=== PATIENT | female | born 1970 | race Asian ===

== ENCOUNTER 2017-10-06 00:46 | Inpatient (IN) | payer OTHER ==
[~2017-10-06] VITALS: Ht 160 cm; Wt 72.0 kg
[~2017-10-06 00:46] MED LIST: CEPH-582 PO
[2017-10-06] MEDS ORDERED: ALBUTEROL SULFATE 2.5 MG/0.5 ML NEB SOLUTION NEB ONE (01:15)
[2017-10-06] MEDS ORDERED: 0.9% SODIUM CHLORIDE 5 ML NEB SOLUTION NEB ONE (01:23)
[2017-10-06 01:57] LABS: BASOPHILS % (AUTO) 0.3 % (0.0-2.0); EOSINOPHILS % (AUTO) 5.2 % (1.0-6.0); HEMATOCRIT 35.6 % (36-46); HEMOGLOBIN 11.9 g/dL (12.0-16.0); LYMPHOCYTES # (AUTO) 0.4 K/uL (1.0-4.8); LYMPHOCYTES % (AUTO) 4.1 % (22.0-44.0); MEAN CORPUSCULAR HEMOGLOBIN 27.6 pg (26.0-34.0); MEAN CORPUSCULAR HGB CONC 33.4 G/dL (31.0-37.0); MEAN CORPUSCULAR VOLUME 83 fL (80-100); MONOCYTES # (AUTO) 1.2 K/uL (0.1-1.0); MONOCYTES % (AUTO) 10.7 % (2.0-9.0); NEUTROPHILS # (AUTO) 8.7 K/uL (1.8-7.7); NEUTROPHILS % (AUTO) 79.7 % (40.0-70.0); PLATELET COUNT (AUTO) 483 K/uL (150-450); RED CELL DISTRIBUTION WIDTH 15.8 % (11.5-14.5)
[2017-10-06 02:06] LABS: ANION GAP 10 mmol/L (8-16); CALCIUM, TOTAL 9.3 mg/dL (8.8-10.5); CARBON DIOXIDE 28 mmol/L (22-29); CHLORIDE 97 mmol/L (98-107); CREATININE 0.79 mg/dL (0.60-1.30); GLOMERULAR FILTR. RATE CALC > 60 mL/min (>60); GLUCOSE,RANDOM 96 mg/dL (70-110); POTASSIUM 3.5 mmol/L (3.5-5.1); SODIUM SERUM 135 mmol/L (136-145); UREA NITROGEN, BLOOD 7 mg/dL (7-18)
[2017-10-06 02:11] LABS: ALANINE AMINOTRANSFERASE 22 U/L (12-78); ALBUMIN 2.9 g/dL (3.4-5.0); ALKALINE PHOSPHATASE 157 U/L (46-116); ASPARTATE AMINOTRANSFERASE 18 U/L (15-37); BILIRUBIN,TOTAL 0.3 mg/dL (0.1-1.0); TOTAL PROTEIN, SERUM 8.9 g/dL (6.4-8.2)
[2017-10-06] MEDS ORDERED: IOVERSOL 350 MG/ML 100 ML VIAL ONE (02:47)
[2017-10-06] MEDS ORDERED: SODIUM CHLORIDE 0.9% 100 ML ONE (02:48)
[2017-10-06] MEDS ORDERED: 0.9% SODIUM CHLORIDE 10 ML SYRINGE IVP PRN (04:45)
[2017-10-06] MEDS ORDERED: ACETAMINOPHEN 325 MG TABLET PO PRN ×2 (04:45→10:00)
[2017-10-06] MEDS ORDERED: ONDANSETRON HCL 4 MG/2 ML VIAL IVP PRN ×2 (04:45→10:00)
[2017-10-06 05:35] VITALS: BP 141/93
[2017-10-06 08:11] VITALS: BP 143/85
[2017-10-06] MEDS: IPRATROPIUM BROMIDE 0.5 MG/2.5 ML NEB SOLUTION NEB PRN (09:54)
[2017-10-06] MEDS: ALBUTEROL SULFATE 2.5 MG/0.5 ML NEB SOLUTION NEB PRN (09:55)
[2017-10-06] MEDS: HEPARIN SODIUM,PORCINE 5,000 UNITS/ML VIAL SQ SCH ×2 (11:13→16:35)
[2017-10-06] MEDS: SODIUM CHLORIDE 0.9% 1,000 ML IV SCH (11:14)
[2017-10-06] MEDS: DOCUSATE SODIUM 100 MG CAPSULE PO SCH ×2 (11:15→21:00)
[2017-10-06] MEDS: OXYGEN THERAPY IH SCH ×2 (11:15→20:00)
[2017-10-06] MEDS: DiphenhydrAMINE HCL 25 MG/10 ML ELIXIR UDCUP PO SCH ×2 (11:15→20:55)
[2017-10-06] MEDS: PROMETHAZINE HCL/CODEINE 6.25-10MG/5ML SYRUP UDCUP PO PRN (12:15)
[2017-10-06] MEDS ORDERED: ZOLPIDEM TARTRATE 5 MG TABLET PO PRN (15:15)
[2017-10-06 15:35] VITALS: BP 113/71
[2017-10-06 20:16] VITALS: BP 117/68
[2017-10-06] MEDS: ZOLPIDEM TARTRATE 5 MG TABLET PO PRN (20:58)
[2017-10-07] VITALS (8 sets, daily range): BP systolic 109–145; BP diastolic 53–90
[2017-10-07] MEDS: SODIUM CHLORIDE 0.9% 1,000 ML IV SCH (02:00)
[2017-10-07] MEDS: DiphenhydrAMINE HCL 25 MG/10 ML ELIXIR UDCUP PO SCH ×3 (02:30→16:53)
[2017-10-07] MEDS: HEPARIN SODIUM,PORCINE 5,000 UNITS/ML VIAL SQ SCH ×3 (07:17→14:44)
[2017-10-07 08:06] LABS: BASOPHILS % (AUTO) 0.1 % (0.0-2.0); EOSINOPHILS % (AUTO) 3.8 % (1.0-6.0); HEMATOCRIT 35.4 % (36-46); HEMOGLOBIN 11.7 g/dL (12.0-16.0); LYMPHOCYTES # (AUTO) 0.3 K/uL (1.0-4.8); LYMPHOCYTES % (AUTO) 3.3 % (22.0-44.0); MEAN CORPUSCULAR HEMOGLOBIN 27.4 pg (26.0-34.0); MEAN CORPUSCULAR VOLUME 83 fL (80-100); MONOCYTES # (AUTO) 0.9 K/uL (0.1-1.0); MONOCYTES % (AUTO) 10.5 % (2.0-9.0); NEUTROPHILS # (AUTO) 7.3 K/uL (1.8-7.7); NEUTROPHILS % (AUTO) 82.3 % (40.0-70.0); PLATELET COUNT (AUTO) 480 K/uL (150-450); RED BLOOD CELL COUNT(AUTO) 4.26 MIL/uL (4.00-5.20); RED CELL DISTRIBUTION WIDTH 15.9 % (11.5-14.5)
[2017-10-07 08:08] LABS: PROTHROMBIN TIME 10.9 SEC (9.4-11.6)
[2017-10-07 08:27] LABS: ALANINE AMINOTRANSFERASE 19 U/L (12-78); ALBUMIN 2.8 g/dL (3.4-5.0); ALKALINE PHOSPHATASE 135 U/L (46-116); ANION GAP 8 mmol/L (8-16); ASPARTATE AMINOTRANSFERASE 17 U/L (15-37); BILIRUBIN,TOTAL 0.5 mg/dL (0.1-1.0); CALCIUM, TOTAL 8.6 mg/dL (8.8-10.5); CARBON DIOXIDE 28 mmol/L (22-29); CHLORIDE 100 mmol/L (98-107); CREATININE 0.71 mg/dL (0.60-1.30); GLOMERULAR FILTR. RATE CALC > 60 mL/min (>60); GLUCOSE,RANDOM 84 mg/dL (70-110); LACTATE DEHYDROGENASE 348 U/L (81-234); POTASSIUM 3.7 mmol/L (3.5-5.1); SODIUM SERUM 136 mmol/L (136-145); THYROID STIMULATING HORMONE 1.36 uIU/mL (0.36-3.74); TOTAL PROTEIN, SERUM 8.6 g/dL (6.4-8.2); UREA NITROGEN, BLOOD 6 mg/dL (7-18); URIC ACID 5.5 mg/dL (2.6-7.2)
[2017-10-07] MEDS: DOCUSATE SODIUM 100 MG CAPSULE PO SCH ×2 (08:51→21:00)
[2017-10-07] MEDS: OXYGEN THERAPY IH SCH ×2 (08:53→20:00)
[2017-10-07] MEDS ORDERED: FLUMAZENIL 0.1 MG/ML 5 ML VIAL IVP ONE (09:19)
[2017-10-07] MEDS ORDERED: FentaNYL CITRATE-PF 100 MCG/2 ML VIAL ONE (09:19)
[2017-10-07] MEDS ORDERED: NALOXONE HCL 0.4 MG/ML VIAL ONE (09:19)
[2017-10-07] MEDS ORDERED: MIDAZOLAM HCL 2 MG/2 ML VIAL ONE (09:19)
[2017-10-07 09:35] LABS: ERYTHROCYTE SEDIMENTATION RATE 95 MM/HR (0-20)
[2017-10-07] MEDS ORDERED: FentaNYL CITRATE-PF 100 MCG/2 ML VIAL IVP ONE (12:17)
[2017-10-07] MEDS ORDERED: MIDAZOLAM HCL 2 MG/2 ML VIAL IVP ONE (12:17)
[2017-10-07] MEDS ORDERED: BARIUM SULFATE 0.1% SUSPENSION 450 ML BOTTLE ONE (12:43)
[2017-10-07] MEDS: ALBUTEROL SULFATE 2.5 MG/0.5 ML NEB SOLUTION NEB PRN (17:01)
[2017-10-07] MEDS: IPRATROPIUM BROMIDE 0.5 MG/2.5 ML NEB SOLUTION NEB PRN (17:01)
[2017-10-07] MEDS ORDERED: IOVERSOL 320 MG/ML 100 ML VIAL ONE (17:14)
[2017-10-07] MEDS: ZOLPIDEM TARTRATE 5 MG TABLET PO PRN (22:50)
[2017-10-08] MEDS: DiphenhydrAMINE HCL 25 MG/10 ML ELIXIR UDCUP PO SCH ×2 (02:30→09:30)
[2017-10-08 06:32] VITALS: BP 130/82
[2017-10-08 08:00] VITALS: BP 145/75
[2017-10-08] MEDS: HEPARIN SODIUM,PORCINE 5,000 UNITS/ML VIAL SQ SCH ×4 (08:00→23:55)
[2017-10-08] MEDS: DOCUSATE SODIUM 100 MG CAPSULE PO SCH ×2 (08:26→21:00)
[2017-10-08] MEDS: OXYGEN THERAPY IH SCH ×2 (08:56→20:00)
[2017-10-08 10:37] LABS: SPECIMENTYPE,BODY FLUID PLEURAL
[2017-10-08 11:05] VITALS: BP 98/62
[2017-10-08 12:25] LABS: APPEARANCE,SPUN,BODY FLUID CLEAR (CLEAR); APPEARANCE,UNSPUN,BODY FLUID HAZY (CLEAR)
[2017-10-08 12:26] LABS: BASOPHILS,BODY FLUID 0 %; COLOR,BODY FLUID YELLOW (LT YELLOW); EOSINOPHILS,BF (ANAL) 3 %; LYMPHOCYTES,BODY FLUID 74 %; MONOCYTES,BODY FLUID 3 %; NEUTROPHILS,BODY FLUID 12 %; TOTAL VOLUME,BODY FLUID 1100 mL; WBC, BODY FLUID 480 /cu. mm.
[2017-10-08 12:27] LABS: OTHER CELLS,BODY FLUID 8; PH, BODY FLUID 7
[2017-10-08 17:24] VITALS: BP 128/83
[2017-10-08 20:56] VITALS: BP 121/62
[2017-10-09 05:17] VITALS: BP 105/64
[2017-10-09] MEDS: DiphenhydrAMINE HCL 25 MG/10 ML ELIXIR UDCUP PO PRN ×2 (06:46→17:18)
[2017-10-09 07:41] VITALS: BP 106/71
[2017-10-09] MEDS: OXYGEN THERAPY IH SCH ×2 (08:00→20:00)
[2017-10-09] MEDS: HEPARIN SODIUM,PORCINE 5,000 UNITS/ML VIAL SQ SCH ×3 (08:00→23:42)
[2017-10-09] MEDS: DOCUSATE SODIUM 100 MG CAPSULE PO SCH ×2 (09:00→21:00)
[2017-10-09 11:33] VITALS: BP 102/53
[2017-10-09 17:17] VITALS: BP 101/64
[2017-10-09 20:37] VITALS: BP 106/61
[2017-10-10] VITALS (13 sets, daily range): BP systolic 98–207; BP diastolic 56–94
[2017-10-10] MEDS: HEPARIN SODIUM,PORCINE 5,000 UNITS/ML VIAL SQ SCH (08:00)
[2017-10-10] MEDS: OXYGEN THERAPY IH SCH (08:00)
[2017-10-10] MEDS: DOCUSATE SODIUM 100 MG CAPSULE PO SCH ×2 (08:18→21:00)
[2017-10-10] MEDS ORDERED: FentaNYL CITRATE-PF 250 MCG/5 ML VIAL IVP ONE (12:00)
[2017-10-10] MEDS ORDERED: ESMOLOL HCL 10 MG/ML 10 ML VIAL IVP ONE (12:00)
[2017-10-10] MEDS ORDERED: KETAMINE HCL 50 MG/ML 10 ML VIAL IVP ONE (12:00)
[2017-10-10] MEDS ORDERED: PROPOFOL 1% 20 ML VIAL IVP ONE (12:00)
[2017-10-10] MEDS ORDERED: LIDOCAINE HCL/PF 2% 5 ML SYRINGE IVP ONE (12:00)
[2017-10-10] MEDS: DiphenhydrAMINE HCL 25 MG/10 ML ELIXIR UDCUP PO PRN (13:15)
[2017-10-10] MEDS ORDERED: SODIUM CHLORIDE 0.9% 1,000 ML IV ONE (15:27)
[2017-10-10] MEDS ORDERED: LIDOCAINE HCL/PF 1% 30 ML VIAL ONE (15:37)
[2017-10-10 16:01] LABS: ABG A-A DIFF O2 49.4 mmHg (10-20.0); ABG BASE EXCESS 1.7 mmol/L (-2.0-3.0); ABG CARBOXYHEMOGLOBIN 1.5 % (0.0-1.5); ABG HCO3 25.9 mmol/L (22.0-26.0); ABG METHEMOGLOBIN 0.5 % (0.0-1.5); ABG OXYGEN CONTENT 14.9 mL/dL (15.0-23.0); ABG OXYGEN SATURATION 88.5 % (95.0-98.0); ABG OXYHEMOGLOBIN 86.7 % (94.0-100.0); ABG PCO2 37 mmHg (35-45); ABG PH 7.454 (7.35-7.450); ABG TOTAL HEMOGLOBIN 12.2 G/dL (12.0-18.0); PO2, ARTERIAL BG 55.6 mmHg (88.0-96.0); SOURCE, BLOOD GAS ARTERIAL; TEMPERATURE, FAHRENHEIT, BG 99.1 FAHREN (96.0-98.6)
[2017-10-10 16:03] LABS: O2 DEVICE,BLOOD GAS ROOM AIR (ROOM AIR); SITE, BLOOD GAS ARTERIAL LINE
[2017-10-10] MEDS ORDERED: HYDROCODONE/ACETAMINOPHEN 5-325 MG TABLET PO PRN (18:00)
[2017-10-10] MEDS: MORPHINE SULFATE 2 MG/ML SYRINGE IVP PRN (18:04)
[2017-10-10] MEDS ORDERED: HYDROmorphone 2 MG/ML SYRINGE IVP ONE ×2 (18:15→18:45)
[2017-10-10] MEDS ORDERED: HYDROmorphone 2 MG/ML SYRINGE ONE (18:19)
[2017-10-10] MEDS ORDERED: SODIUM CHLORIDE 0.9% 250 ML IV ONE (18:38)
[2017-10-10] MEDS: CeFAZolin 1 GM/DEXTROSE 50 ML IV SCH (18:43)
[2017-10-10 21:49] LABS: ABG A-A DIFF O2 110.5 mmHg (10-20.0); ABG BASE EXCESS 1.1 mmol/L (-2.0-3.0); ABG HCO3 24.8 mmol/L (22.0-26.0); ABG METHEMOGLOBIN 0.3 % (0.0-1.5); ABG OXYGEN CONTENT 17.1 mL/dL (15.0-23.0); ABG OXYGEN SATURATION 98.9 % (95.0-98.0); ABG OXYHEMOGLOBIN 97.6 % (94.0-100.0); ABG PCO2 54 mmHg (35-45); ABG PH 7.318 (7.35-7.450); ABG TOTAL HEMOGLOBIN 12.3 G/dL (12.0-18.0); PO2, ARTERIAL BG 141.5 mmHg (88.0-96.0); SOURCE, BLOOD GAS ARTERIAL; TEMPERATURE, FAHRENHEIT, BG 98.5 FAHREN (96.0-98.6)
[2017-10-10 21:52] LABS: SITE, BLOOD GAS ARTERIAL LINE
[2017-10-10 21:53] LABS: O2 DEVICE,BLOOD GAS SIMPLE MASK (ROOM AIR)
[2017-10-10] MEDS: HYDROmorphone 2 MG/ML SYRINGE IVP PRN (22:45)
[2017-10-11] VITALS (9 sets, daily range): BP systolic 97–152; BP diastolic 52–88
[2017-10-11] MEDS: DiphenhydrAMINE HCL 25 MG/10 ML ELIXIR UDCUP PO PRN (02:04)
[2017-10-11] MEDS: CeFAZolin 1 GM/DEXTROSE 50 ML IV SCH (02:05)
[2017-10-11] MEDS: HYDROmorphone 2 MG/ML SYRINGE IVP PRN ×5 (03:01→22:19)
[2017-10-11 05:39] LABS: ANION GAP 6 mmol/L (8-16); CALCIUM, TOTAL 8.6 mg/dL (8.8-10.5); CARBON DIOXIDE 28 mmol/L (22-29); CHLORIDE 104 mmol/L (98-107); GLOMERULAR FILTR. RATE CALC > 60 mL/min (>60); GLUCOSE,RANDOM 98 mg/dL (70-110); SODIUM SERUM 138 mmol/L (136-145); UREA NITROGEN, BLOOD 8 mg/dL (7-18)
[2017-10-11 05:41] LABS: BASOPHILS % (AUTO) 0.1 % (0.0-2.0); EOSINOPHILS % (AUTO) 0.9 % (1.0-6.0); HEMATOCRIT 35.7 % (36-46); HEMOGLOBIN 11.7 g/dL (12.0-16.0); LYMPHOCYTES # (AUTO) 0.2 K/uL (1.0-4.8); LYMPHOCYTES % (AUTO) 1.8 % (22.0-44.0); MEAN CORPUSCULAR HEMOGLOBIN 27.6 pg (26.0-34.0); MEAN CORPUSCULAR HGB CONC 32.7 G/dL (31.0-37.0); MEAN CORPUSCULAR VOLUME 84 fL (80-100); MONOCYTES % (AUTO) 10.2 % (2.0-9.0); NEUTROPHILS # (AUTO) 8.8 K/uL (1.8-7.7); PLATELET COUNT (AUTO) 390 K/uL (150-450); RED BLOOD CELL COUNT(AUTO) 4.22 MIL/uL (4.00-5.20); RED CELL DISTRIBUTION WIDTH 15.9 % (11.5-14.5)
[2017-10-11] MEDS: HYDROCODONE/ACETAMINOPHEN 5-325 MG TABLET PO PRN ×2 (07:56→14:20)
[2017-10-11] MEDS: DOCUSATE SODIUM 100 MG CAPSULE PO SCH ×2 (07:56→20:35)
[2017-10-11] MEDS: OXYGEN THERAPY IH SCH ×3 (07:57→20:35)
[2017-10-11] MEDS: OxyCODONE HCL/ACETAMINOPHEN 10-325 MG TABLET PO PRN ×2 (11:09→17:20)
[2017-10-11] MEDS: MORPHINE SULFATE 2 MG/ML SYRINGE IVP PRN ×2 (14:13→15:12)
[2017-10-11] MEDS ORDERED: SODIUM CHLORIDE 0.9% 250 ML IV ONE (20:30)
[2017-10-12] VITALS (8 sets, daily range): BP systolic 102–132; BP diastolic 46–112
[2017-10-12] MEDS: HYDROmorphone 2 MG/ML SYRINGE IVP PRN ×4 (03:13→20:29)
[2017-10-12] MEDS: DOCUSATE SODIUM 100 MG CAPSULE PO SCH ×2 (09:08→20:28)
[2017-10-12] MEDS: MORPHINE SULFATE 2 MG/ML SYRINGE IVP PRN (09:08)
[2017-10-12] MEDS ORDERED: CeFAZolin 1 GM/DEXTROSE 50 ML IV SCH (11:00)
[2017-10-12] MEDS: DiphenhydrAMINE HCL 25 MG/10 ML ELIXIR UDCUP PO PRN (16:16)
[2017-10-12] MEDS: OXYGEN THERAPY IH SCH ×2 (20:28→20:48)
[2017-10-12] MEDS: ALBUTEROL SULFATE 2.5 MG/0.5 ML NEB SOLUTION NEB PRN (21:01)
[2017-10-12] MEDS: IPRATROPIUM BROMIDE 0.5 MG/2.5 ML NEB SOLUTION NEB PRN (21:01)
[2017-10-13] VITALS (7 sets, daily range): BP systolic 98–123; BP diastolic 51–63
[2017-10-13] MEDS: HYDROmorphone 2 MG/ML SYRINGE IVP PRN ×5 (00:19→20:10)
[2017-10-13] MEDS: DOCUSATE SODIUM 100 MG CAPSULE PO SCH ×2 (08:37→20:10)
[2017-10-13] MEDS: OXYGEN THERAPY IH SCH ×2 (08:37→20:09)
[2017-10-13] MEDS: PROMETHAZINE HCL/CODEINE 6.25-10MG/5ML SYRUP UDCUP PO PRN (16:29)
[2017-10-13] MEDS: 0.9% SODIUM CHLORIDE 10 ML SYRINGE IVP PRN (20:11)
[2017-10-14] VITALS (7 sets, daily range): BP systolic 102–113; BP diastolic 48–81
[2017-10-14] MEDS: MORPHINE SULFATE 2 MG/ML SYRINGE IVP PRN (02:40)
[2017-10-14] MEDS: HYDROmorphone 2 MG/ML SYRINGE IVP PRN ×5 (04:51→18:38)
[2017-10-14 06:51] LABS: BASOPHILS % (AUTO) 0.3 % (0.0-2.0); EOSINOPHILS % (AUTO) 1.9 % (1.0-6.0); HEMATOCRIT 35.2 % (36-46); HEMOGLOBIN 11.5 g/dL (12.0-16.0); LYMPHOCYTES # (AUTO) 0.2 K/uL (1.0-4.8); LYMPHOCYTES % (AUTO) 2.3 % (22.0-44.0); MEAN CORPUSCULAR HEMOGLOBIN 26.9 pg (26.0-34.0); MEAN CORPUSCULAR HGB CONC 32.8 G/dL (31.0-37.0); MEAN CORPUSCULAR VOLUME 82 fL (80-100); MONOCYTES % (AUTO) 11.2 % (2.0-9.0); NEUTROPHILS # (AUTO) 7.7 K/uL (1.8-7.7); NEUTROPHILS % (AUTO) 84.3 % (40.0-70.0); PLATELET COUNT (AUTO) 382 K/uL (150-450); RED BLOOD CELL COUNT(AUTO) 4.28 MIL/uL (4.00-5.20); RED CELL DISTRIBUTION WIDTH 15.8 % (11.5-14.5)
[2017-10-14 06:56] LABS: TOTAL PROTEIN, SERUM 7.2 g/dL (6.4-8.2)
[2017-10-14] MEDS: 0.9% SODIUM CHLORIDE 10 ML SYRINGE IVP PRN (06:57)
[2017-10-14] MEDS: DOCUSATE SODIUM 100 MG CAPSULE PO SCH ×2 (07:59→20:53)
[2017-10-14] MEDS: OXYGEN THERAPY IH SCH ×2 (08:01→20:53)
[2017-10-14] MEDS ORDERED: MAGNESIUM CITRATE 300 ML ORAL SOLUTION PO ONE (22:00)
[2017-10-15 00:04] VITALS: BP 106/63
[2017-10-15] MEDS: HYDROmorphone 2 MG/ML SYRINGE IVP PRN ×3 (02:34→13:46)
[2017-10-15 04:45] VITALS: BP 105/62
[2017-10-15 07:17] LABS: PROTHROMBIN TIME 10.1 SEC (9.4-11.6)
[2017-10-15 07:45] VITALS: BP 120/54
[2017-10-15] MEDS: OXYGEN THERAPY IH SCH (08:14)
[2017-10-15] MEDS ORDERED: DOCUSATE SODIUM 250 MG CAPSULE PO SCH (09:00)
[2017-10-15] MEDS ORDERED: FentaNYL CITRATE-PF 100 MCG/2 ML VIAL ONE (09:11)
[2017-10-15] MEDS ORDERED: MIDAZOLAM HCL 2 MG/2 ML VIAL ONE (09:11)
[2017-10-15] MEDS ORDERED: LIDOCAINE HCL/PF 1% 30 ML VIAL ONE (09:11)
[2017-10-15] MEDS ORDERED: MIDAZOLAM HCL 2 MG/2 ML VIAL IVP ONE ×2 (09:59)
[2017-10-15] MEDS ORDERED: FentaNYL CITRATE-PF 100 MCG/2 ML VIAL IVP ONE ×2 (10:02)
[2017-10-15 10:57] LABS: SPECIMENTYPE,BODY FLUID PLEURAL
[2017-10-15 11:34] VITALS: BP 112/57
[2017-10-15 11:39] VITALS: BP 93/50
[2017-10-15 14:13] LABS: APPEARANCE,SPUN,BODY FLUID CLEAR (CLEAR); APPEARANCE,UNSPUN,BODY FLUID CLOUDY (CLEAR); BASOPHILS,BODY FLUID 0 %; COLOR,BODY FLUID RED (LT YELLOW); EOSINOPHILS,BF (ANAL) 2 %; LYMPHOCYTES,BODY FLUID 32 %; MONOCYTES,BODY FLUID 3 %; NEUTROPHILS,BODY FLUID 53 %; TOTAL VOLUME,BODY FLUID 1400 mL; WBC, BODY FLUID 1145 /cu. mm.
[2017-10-15 14:16] LABS: OTHER CELLS,BODY FLUID MACROPHAGES
[2017-10-15] MEDS ORDERED: DSS100 PO (14:52)
[2017-10-15] MEDS ORDERED: ACET160L34 PO (14:53)
[2017-10-15] MEDS ORDERED: AUD NEB (14:54)
[2017-10-15] MEDS ORDERED: HYDR-4061 PO (14:56)
[2017-10-15] MEDS ORDERED: DIPH25 PO (14:56)
[2017-10-15] MEDS ORDERED: IPRA3AMP23 IH (14:57)
[2017-10-15] MEDS ORDERED: HYDR1SYR4 IVP (14:57)
[2017-10-15] MEDS ORDERED: ONDA4 IVP (14:58)
[2017-10-15] MEDS ORDERED: PROM6.2522 PO (14:58)
[2017-10-15 16:13] VITALS: BP 101/51
== END 2017-10-15 16:30 | disposition short-term general hospital (02) | DRG 820 ==
LOC: EMS 00:46 → 6N 04:30 → ICU 10-10 15:37 → 5N 10-12 17:00
PROVIDERS: ADMIT Internal Medicine; ATTEND Internal Medicine
PROC: 0WBC3ZX Excision of Mediastinum, Percutaneous Approach, Diagnostic (ICD-10-PCS; 2017-10-07)
PROC: 0W993ZZ Drainage of Right Pleural Cavity, Percutaneous Approach (ICD-10-PCS; 2017-10-08)
PROC: 0W9B3ZZ Drainage of Left Pleural Cavity, Percutaneous Approach (ICD-10-PCS; 2017-10-09)
PROC: 0W9D00Z Drainage of Pericardial Cavity with Drainage Device, Open Approach (ICD-10-PCS; principal; 2017-10-10 15:45)
PROC: 05HY33Z Insertion of Infusion Device into Upper Vein, Percutaneous Approach (ICD-10-PCS; 2017-10-11)
PROC: B54MZZZ Ultrasonography of Right Upper Extremity Veins (ICD-10-PCS; 2017-10-11)
PROC: 0QB23ZX Excision of Right Pelvic Bone, Percutaneous Approach, Diagnostic (ICD-10-PCS; 2017-10-15)
PROC: 0W993ZZ Drainage of Right Pleural Cavity, Percutaneous Approach (ICD-10-PCS; 2017-10-15)
DX: C85.23 Mediastinal (thymic) large B-cell lymphoma, intra-abdominal lymph nodes (principal); J96.91 Respiratory failure, unspecified with hypoxia; I31.4 Cardiac tamponade; E44.0 Moderate protein-calorie malnutrition; I87.1 Compression of vein; J91.0 Malignant pleural effusion; E11.9 Type 2 diabetes mellitus without complications; I10 Essential (primary) hypertension; Z82.49 Family history of ischemic heart disease and other diseases of the circulatory system; Z83.3 Family history of diabetes mellitus; Z99.81 Dependence on supplemental oxygen; Z91.012 Allergy to eggs; Z91.018 Allergy to other foods; Z68.28 Body mass index [BMI] 28.0-28.9, adult
CPT/HCPCS: 32405; 32555; 36245; 71250; 71275; 74177; 76937; 76942; 77012; 82465; 82805; 82945; 83615; 83735; 83986; 84155; 84157; 84443; 84550; 85379; 85651; 86850; 86900; 86901; 87015; 87070; 87081; 87205; 87206; 87566; 88108; 88305; 88311; 88312; 88313; 88321; 88341; 88342; 89051; 93005; 93306; 94640; 97163; 97530; 99285; J0690; J1170; J1644; J2250; J2270; J2310; J2704; J3010; J3490; J7030; J7050

== ENCOUNTER → 2020-12-06 | Outpatient (CLI) | payer OTHER ==
[~2020-12-06] MED LIST changes: +ACET160L48 PO; +AUD NEB; -CEPH-582 PO; +DIPH25 PO; +DSS100 PO; +HYDR-4061 PO; +HYDR1SYR7 IVP; +IPRA3AMP23 IH; +ONDA-104 IVP; +PROM5L PO
[2020-12-06 11:59] LABS: BASOPHILS % (AUTO) 0.9 % (0.0-2.0); EOSINOPHILS % (AUTO) 1.7 % (1.0-6.0); HEMOGLOBIN 14.6 g/dL (12.0-16.0); LYMPHOCYTES # (AUTO) 1.8 K/uL (1.0-4.8); LYMPHOCYTES % (AUTO) 37.2 % (22.0-44.0); MEAN CORPUSCULAR HEMOGLOBIN 30.3 pg (26.0-34.0); MEAN CORPUSCULAR HGB CONC 33.9 G/dL (31.0-37.0); MEAN CORPUSCULAR VOLUME 89 fL (80-100); MONOCYTES # (AUTO) 0.4 K/uL (0.1-1.0); MONOCYTES % (AUTO) 7.3 % (2.0-9.0); NEUTROPHILS # (AUTO) 2.6 K/uL (1.8-7.7); NEUTROPHILS % (AUTO) 52.9 % (40.0-70.0); PLATELET COUNT (AUTO) 238 K/uL (150-450); RED BLOOD CELL COUNT(AUTO) 4.81 MIL/uL (4.00-5.20); RED CELL DISTRIBUTION WIDTH 12.7 % (11.5-14.5)
[2020-12-06 12:23] LABS: HEMOGLOBIN A1C 6.1 % (3.8-5.6)
[2020-12-06 12:25] LABS: FOLATE SERUM 20.7 ng/mL (5.4-)
[2020-12-06 12:33] LABS: ALANINE AMINOTRANSFERASE 107 U/L (12-78); ALBUMIN 4.2 g/dL (3.4-5.0); ALKALINE PHOSPHATASE 129 U/L (46-116); ANION GAP 9 mmol/L (8-16); ASPARTATE AMINOTRANSFERASE 48 U/L (15-37); BILIRUBIN,TOTAL 0.4 mg/dL (0.1-1.0); CALCIUM, TOTAL 9.6 mg/dL (8.8-10.5); CARBON DIOXIDE 29 mmol/L (22-29); CHLORIDE 105 mmol/L (98-107); CHOL/HDL RATIO 5.2 (3.9-5.7); CHOLESTEROL 275 mg/dL (131-200); CREATININE 0.81 mg/dL (0.60-1.30); GLOMERULAR FILTR. RATE CALC > 60 mL/min (>60); GLUCOSE,RANDOM 113 mg/dL (70-110); HDL CHOLESTEROL 53 mg/dL (40-60); LDL CHOL (CALC.) 196 mg/dL (0-130); POTASSIUM 4.3 mmol/L (3.5-5.1); SODIUM SERUM 143 mmol/L (136-145); THYROID STIMULATING HORMONE 0.88 uIU/mL (0.36-3.74); TOTAL PROTEIN, SERUM 8.8 g/dL (6.4-8.2); TRIGLYCERIDES 132 mg/dL (15-150); UREA NITROGEN, BLOOD 14 mg/dL (7-18)
== END | disposition home or self-care (01) ==
LOC: LABPV 09:41
PROVIDERS: ATTEND Legal Medicine
DX: Z00.00 Encounter for general adult medical examination without abnormal findings (principal)
CPT/HCPCS: 80053; 80061; 82306; 82607; 82746; 83036; 84443; 85025

== ENCOUNTER 2021-04-10 06:59 | Day surgery (SDC) | payer OTHER ==
[2021-04-07 08:12] LABS: COVID AG,FIA SOURCE NASAL SWAB
[~2021-04-10] VITALS: Ht 160 cm; Wt 77.3 kg
[~2021-04-10 06:59] MED LIST changes: -ACET160L48 PO; +ATOR40TA28 PO; -AUD NEB; -DIPH25 PO; -DSS100 PO; -HYDR-4061 PO; -HYDR1SYR7 IVP; -IPRA3AMP23 IH; +METF-1211 PO; -ONDA-104 IVP; -PROM5L PO
[2021-04-10] MEDS ORDERED: SODIUM CHLORIDE 0.9% 1,000 ML ONE (07:00)
[2021-04-10] MEDS ORDERED: SODIUM CHLORIDE 0.9% 1,000 ML IV ONE (07:30)
[2021-04-10 08:41] LABS: GLUCOMETER DEV NAME(LOC) SDS.; GLUCOSE,POINT OF CARE 100 MG/DL (70-110)
[2021-04-10] MEDS ORDERED: PROPOFOL 1% 20 ML VIAL IVP ONE (12:00)
== END 2021-04-10 10:15 | disposition home or self-care (01) ==
LOC: SURGERY 06:59
PROVIDERS: ATTEND Student in an Organized Health Care Education/Training Program
DX: Z12.11 Encounter for screening for malignant neoplasm of colon (principal); K64.8 Other hemorrhoids; K64.4 Residual hemorrhoidal skin tags; Z85.71 Personal history of Hodgkin lymphoma; E78.5 Hyperlipidemia, unspecified; E11.9 Type 2 diabetes mellitus without complications; Z98.890 Other specified postprocedural states; Z79.899 Other long term (current) drug therapy
CPT/HCPCS: 45378; 82962; 87426; C9803; J2704; J7030

== ENCOUNTER → 2021-06-13 | Outpatient (CLI) | payer OTHER ==
[2021-06-13 12:10] LABS: BASOPHILS % (AUTO) 0.9 % (0.0-2.0); EOSINOPHILS % (AUTO) 1.1 % (1.0-6.0); HEMATOCRIT 41.8 % (36-46); HEMOGLOBIN 14.2 g/dL (12.0-16.0); LYMPHOCYTES # (AUTO) 1.7 K/uL (1.0-4.8); LYMPHOCYTES % (AUTO) 28.1 % (22.0-44.0); MEAN CORPUSCULAR HEMOGLOBIN 30.5 pg (26.0-34.0); MEAN CORPUSCULAR HGB CONC 33.9 G/dL (31.0-37.0); MEAN CORPUSCULAR VOLUME 90 fL (80-100); MONOCYTES # (AUTO) 0.3 K/uL (0.1-1.0); MONOCYTES % (AUTO) 5.4 % (2.0-9.0); NEUTROPHILS # (AUTO) 3.9 K/uL (1.8-7.7); NEUTROPHILS % (AUTO) 64.5 % (40.0-70.0); PLATELET COUNT (AUTO) 250 K/uL (150-450); RED BLOOD CELL COUNT(AUTO) 4.65 MIL/uL (4.00-5.20); RED CELL DISTRIBUTION WIDTH 13.1 % (11.5-14.5)
[2021-06-13 12:34] LABS: HEMOGLOBIN A1C 5.8 % (3.8-5.6)
[2021-06-13 12:37] LABS: ALANINE AMINOTRANSFERASE 73 U/L (12-78); ALBUMIN 4.1 g/dL (3.4-5.0); ALKALINE PHOSPHATASE 151 U/L (46-116); ANION GAP 8 mmol/L (8-16); ASPARTATE AMINOTRANSFERASE 33 U/L (15-37); BILIRUBIN,TOTAL 0.6 mg/dL (0.1-1.0); CALCIUM, TOTAL 9.3 mg/dL (8.8-10.5); CARBON DIOXIDE 30 mmol/L (22-29); CHLORIDE 102 mmol/L (98-107); CHOL/HDL RATIO 3.3 (3.9-5.7); CHOLESTEROL 173 mg/dL (131-200); CREATININE 0.66 mg/dL (0.60-1.30); GLOMERULAR FILTR. RATE CALC > 60 mL/min (>60); GLUCOSE,RANDOM 93 mg/dL (70-110); HDL CHOLESTEROL 52 mg/dL (40-60); LDL CHOL (CALC.) 103 mg/dL (0-130); POTASSIUM 3.8 mmol/L (3.5-5.1); SODIUM SERUM 140 mmol/L (136-145); THYROID STIMULATING HORMONE 0.71 uIU/mL (0.36-3.74); TOTAL PROTEIN, SERUM 8.5 g/dL (6.4-8.2); TRIGLYCERIDES 90 mg/dL (15-150); UREA NITROGEN, BLOOD 13 mg/dL (7-18)
[2021-06-13 12:47] LABS: FOLATE SERUM 16.2 ng/mL (5.4-)
== END | disposition home or self-care (01) ==
LOC: LABPV 10:18
PROVIDERS: ATTEND Legal Medicine
DX: E11.65 Type 2 diabetes mellitus with hyperglycemia (principal); E11.69 Type 2 diabetes mellitus with other specified complication; K76.0 Fatty (change of) liver, not elsewhere classified
CPT/HCPCS: 80053; 80061; 82043; 82306; 82570; 82607; 82746; 83036; 84443; 85025

== ENCOUNTER → 2022-01-23 | Outpatient (CLI) | payer OTHER ==
[2022-01-23 15:37] LABS: ANION GAP 8 mmol/L (8-16); CARBON DIOXIDE 29 mmol/L (22-29); CHLORIDE 100 mmol/L (98-107); CREATININE 0.79 mg/dL (0.60-1.30); GLUCOSE,RANDOM 93 mg/dL (70-110); SODIUM SERUM 137 mmol/L (136-145); UREA NITROGEN, BLOOD 18 mg/dL (7-18)
[2022-01-23 15:38] LABS: ALANINE AMINOTRANSFERASE 77 U/L (12-78); ALKALINE PHOSPHATASE 128 U/L (46-116); ASPARTATE AMINOTRANSFERASE 29 U/L (15-37); BILIRUBIN,TOTAL 0.3 mg/dL (0.1-1.0); CALCIUM, TOTAL 9.5 mg/dL (8.8-10.5); TOTAL PROTEIN, SERUM 8.5 g/dL (6.4-8.2)
[2022-01-23 15:40] LABS: GLOMERULAR FILTR. RATE CALC > 60 mL/min (>60)
[2022-01-23 20:41] LABS: COVID AG,FIA SOURCE NASOPHARYNGEAL
== END | disposition home or self-care (01) ==
LOC: LABMN 14:55
PROVIDERS: ATTEND Legal Medicine
DX: C81.90 Hodgkin lymphoma, unspecified, unspecified site (principal); Z20.822 Contact with and (suspected) exposure to COVID-19
CPT/HCPCS: 80053

== ENCOUNTER → 2022-02-13 | Outpatient (CLI) | payer OTHER ==
[2022-02-19 20:06] LABS: ALKALINE PHOSPHATASE - OTHER 39 % (0-18)
== END | disposition home or self-care (01) ==
LOC: LABMN 07:44
PROVIDERS: ATTEND Legal Medicine
DX: K76.0 Fatty (change of) liver, not elsewhere classified (principal)
CPT/HCPCS: 84080

== ENCOUNTER → 2022-07-16 | Outpatient (CLI) | payer OTHER ==
[2022-07-16 10:57] LABS: BASOPHILS % (AUTO) 1.1 % (0.0-2.0); EOSINOPHILS % (AUTO) 2.7 % (1.0-6.0); HEMATOCRIT 43.7 % (36-46); HEMOGLOBIN 14.5 g/dL (12.0-16.0); LYMPHOCYTES # (AUTO) 1.6 K/uL (1.0-4.8); LYMPHOCYTES % (AUTO) 37.9 % (22.0-44.0); MEAN CORPUSCULAR HEMOGLOBIN 29.9 pg (26.0-34.0); MEAN CORPUSCULAR HGB CONC 33.1 G/dL (31.0-37.0); MEAN CORPUSCULAR VOLUME 90 fL (80-100); MONOCYTES # (AUTO) 0.3 K/uL (0.1-1.0); NEUTROPHILS # (AUTO) 2.2 K/uL (1.8-7.7); NEUTROPHILS % (AUTO) 50.3 % (40.0-70.0); PLATELET COUNT (AUTO) 240 K/uL (150-450); RED BLOOD CELL COUNT(AUTO) 4.84 MIL/uL (4.00-5.20); RED CELL DISTRIBUTION WIDTH 12.6 % (11.5-14.5)
[2022-07-16 11:23] LABS: ALANINE AMINOTRANSFERASE 64 U/L (12-78); ALKALINE PHOSPHATASE 129 U/L (46-116); ANION GAP 6 mmol/L (8-16); ASPARTATE AMINOTRANSFERASE 32 U/L (15-37); BILIRUBIN,TOTAL 0.6 mg/dL (0.1-1.0); CALCIUM, TOTAL 9.6 mg/dL (8.8-10.5); CARBON DIOXIDE 31 mmol/L (22-29); CHLORIDE 103 mmol/L (98-107); CHOL/HDL RATIO 5.1 (3.9-5.7); CHOLESTEROL 267 mg/dL (131-200); CREATININE 0.73 mg/dL (0.60-1.30); GLOMERULAR FILTR. RATE CALC > 60 mL/min (>60); GLUCOSE,RANDOM 106 mg/dL (70-110); HDL CHOLESTEROL 52 mg/dL (40-60); LDL CHOL (CALC.) 189 mg/dL (0-130); POTASSIUM 4.6 mmol/L (3.5-5.1); SODIUM SERUM 140 mmol/L (136-145); THYROID STIMULATING HORMONE 0.82 uIU/mL (0.36-3.74); TOTAL PROTEIN, SERUM 8.5 g/dL (6.4-8.2); TRIGLYCERIDES 131 mg/dL (15-150)
== END | disposition home or self-care (01) ==
LOC: LABMN 10:23
PROVIDERS: ATTEND Legal Medicine
DX: E78.5 Hyperlipidemia, unspecified (principal); E11.65 Type 2 diabetes mellitus with hyperglycemia
CPT/HCPCS: 80053; 80061; 82043; 82570; 83036; 84443; 85025

== ENCOUNTER → 2022-11-13 | Outpatient (CLI) | payer OTHER ==
[2022-11-13 08:33] LABS: HEMOGLOBIN A1C 5.9 % (3.8-5.6)
[2022-11-13 08:34] LABS: ALANINE AMINOTRANSFERASE 80 U/L (12-78); ALBUMIN 3.9 g/dL (3.4-5.0); ALKALINE PHOSPHATASE 143 U/L (46-116); ANION GAP 4 mmol/L (8-16); ASPARTATE AMINOTRANSFERASE 33 U/L (15-37); BILIRUBIN,TOTAL 0.6 mg/dL (0.1-1.0); CALCIUM, TOTAL 9.3 mg/dL (8.8-10.5); CARBON DIOXIDE 30 mmol/L (22-29); CHLORIDE 102 mmol/L (98-107); CHOL/HDL RATIO 4.7 (3.9-5.7); CHOLESTEROL 256 mg/dL (131-200); CREATININE 0.69 mg/dL (0.60-1.30); GLOMERULAR FILTR. RATE CALC > 60 mL/min (>60); GLUCOSE,RANDOM 111 mg/dL (70-110); HDL CHOLESTEROL 54 mg/dL (40-60); LDL CHOL (CALC.) 189 mg/dL (0-130); POTASSIUM 4.4 mmol/L (3.5-5.1); SODIUM SERUM 136 mmol/L (136-145); TRIGLYCERIDES 65 mg/dL (15-150); UREA NITROGEN, BLOOD 16 mg/dL (7-18)
== END | disposition home or self-care (01) ==
LOC: LABMN 07:52
PROVIDERS: ATTEND Legal Medicine
DX: E11.65 Type 2 diabetes mellitus with hyperglycemia (principal); E78.2 Mixed hyperlipidemia
CPT/HCPCS: 80053; 80061; 83036

== ENCOUNTER → 2022-12-24 | Outpatient (CLI) | payer OTHER ==
[2022-12-24 08:14] LABS: BASOPHILS % (AUTO) 0.9 % (0.0-2.0); EOSINOPHILS % (AUTO) 2.2 % (1.0-6.0); HEMATOCRIT 39.6 % (36-46); HEMOGLOBIN 13.6 g/dL (12.0-16.0); LYMPHOCYTES # (AUTO) 2.3 K/uL (1.0-4.8); LYMPHOCYTES % (AUTO) 49.1 % (22.0-44.0); MEAN CORPUSCULAR HGB CONC 34.3 G/dL (31.0-37.0); MEAN CORPUSCULAR VOLUME 90 fL (80-100); MONOCYTES # (AUTO) 0.3 K/uL (0.1-1.0); MONOCYTES % (AUTO) 7.1 % (2.0-9.0); NEUTROPHILS # (AUTO) 1.9 K/uL (1.8-7.7); NEUTROPHILS % (AUTO) 40.7 % (40.0-70.0); PLATELET COUNT (AUTO) 224 K/uL (150-450); RED BLOOD CELL COUNT(AUTO) 4.38 MIL/uL (4.00-5.20); RED CELL DISTRIBUTION WIDTH 12.5 % (11.5-14.5); WHITE BLOOD COUNT (AUTO) 4.7 K/uL (4.5-11.0)
[2022-12-24 09:00] LABS: ALANINE AMINOTRANSFERASE 66 U/L (12-78); ALBUMIN 3.9 g/dL (3.4-5.0); ALKALINE PHOSPHATASE 138 U/L (46-116); ANION GAP 6 mmol/L (8-16); ASPARTATE AMINOTRANSFERASE 34 U/L (15-37); BILIRUBIN,TOTAL 0.5 mg/dL (0.1-1.0); CALCIUM, TOTAL 9.6 mg/dL (8.8-10.5); CARBON DIOXIDE 31 mmol/L (22-29); CHLORIDE 102 mmol/L (98-107); CHOLESTEROL 219 mg/dL (131-200); CREATININE 0.73 mg/dL (0.60-1.30); GLOMERULAR FILTR. RATE CALC > 60 mL/min (>60); GLUCOSE,RANDOM 103 mg/dL (70-110); HDL CHOLESTEROL 53 mg/dL (40-60); POTASSIUM 3.8 mmol/L (3.5-5.1); SODIUM SERUM 139 mmol/L (136-145); TOTAL PROTEIN, SERUM 8.4 g/dL (6.4-8.2); TRIGLYCERIDES 74 mg/dL (15-150); UREA NITROGEN, BLOOD 17 mg/dL (7-18)
[2022-12-24 09:01] LABS: CHOL/HDL RATIO 4.1 (3.9-5.7); LDL CHOL (CALC.) 151 mg/dL (0-130); THYROID STIMULATING HORMONE 1.09 uIU/mL (0.36-3.74)
[2022-12-24 13:42] LABS: VITAMIN B12 LEVEL 897 pg/mL (211-911); VITAMIN D,TOTAL (25-0H) 36 ng/mL (30-100)
[2022-12-24 14:16] LABS: FOLATE SERUM > 24.0 ng/mL (5.4-)
[2022-12-25 18:07] LABS: CREATININE, URINE (mALB) 118.6 mg/dL (Not Estab.)
== END | disposition home or self-care (01) ==
LOC: LABMN 07:42
PROVIDERS: ATTEND Legal Medicine
DX: E11.21 Type 2 diabetes mellitus with diabetic nephropathy (principal); K76.0 Fatty (change of) liver, not elsewhere classified; E11.65 Type 2 diabetes mellitus with hyperglycemia; K64.4 Residual hemorrhoidal skin tags
CPT/HCPCS: 80053; 80061; 82043; 82306; 82570; 82607; 82746; 83036; 84443; 85025

== ENCOUNTER → 2023-07-29 | Outpatient (CLI) | payer OTHER ==
[2023-07-29 07:31] LABS: BASOPHILS % (AUTO) 0.7 % (0.0-2.0); EOSINOPHILS % (AUTO) 2.6 % (1.0-6.0); HEMATOCRIT 43.2 % (36-46); HEMOGLOBIN 14.5 g/dL (12.0-16.0); LYMPHOCYTES # (AUTO) 1.8 K/uL (1.0-4.8); LYMPHOCYTES % (AUTO) 42.2 % (22.0-44.0); MEAN CORPUSCULAR HEMOGLOBIN 30.4 pg (26.0-34.0); MEAN CORPUSCULAR HGB CONC 33.6 G/dL (31.0-37.0); MEAN CORPUSCULAR VOLUME 91 fL (80-100); MONOCYTES # (AUTO) 0.3 K/uL (0.1-1.0); MONOCYTES % (AUTO) 7.9 % (2.0-9.0); NEUTROPHILS # (AUTO) 1.9 K/uL (1.8-7.7); NEUTROPHILS % (AUTO) 46.6 % (40.0-70.0); PLATELET COUNT (AUTO) 238 K/uL (150-450); RED BLOOD CELL COUNT(AUTO) 4.77 MIL/uL (4.00-5.20); RED CELL DISTRIBUTION WIDTH 12.9 % (11.5-14.5); WHITE BLOOD COUNT (AUTO) 4.1 K/uL (4.5-11.0)
[2023-07-29 07:43] LABS: HEMOGLOBIN A1C 6.1 % (3.8-5.6)
[2023-07-29 07:54] LABS: ALANINE AMINOTRANSFERASE 87 U/L (12-78); ALKALINE PHOSPHATASE 140 U/L (46-116); ANION GAP 7 mmol/L (8-16); ASPARTATE AMINOTRANSFERASE 43 U/L (15-37); BILIRUBIN,TOTAL 0.9 mg/dL (0.1-1.0); CALCIUM, TOTAL 9.7 mg/dL (8.8-10.5); CARBON DIOXIDE 32 mmol/L (22-29); CHLORIDE 103 mmol/L (98-107); CHOL/HDL RATIO 3.1 (3.9-5.7); CHOLESTEROL 176 mg/dL (131-200); CREATININE 0.72 mg/dL (0.60-1.30); GLOMERULAR FILTR. RATE CALC > 60 mL/min (>60); GLUCOSE,RANDOM 111 mg/dL (70-110); HDL CHOLESTEROL 57 mg/dL (40-60); LDL CHOL (CALC.) 110 mg/dL (0-130); POTASSIUM 4.1 mmol/L (3.5-5.1); SODIUM SERUM 142 mmol/L (136-145); THYROID STIMULATING HORMONE 0.95 uIU/mL (0.36-3.74); TOTAL PROTEIN, SERUM 8.6 g/dL (6.4-8.2); TRIGLYCERIDES 47 mg/dL (15-150); UREA NITROGEN, BLOOD 11 mg/dL (7-18)
[2023-07-29 10:38] LABS: VITAMIN D,TOTAL (25-0H) 43 ng/mL (30-100)
[2023-07-29 10:40] LABS: VITAMIN B12 LEVEL 1089 pg/mL (211-911)
[2023-07-29 11:58] LABS: FOLATE SERUM > 24.0 ng/mL (5.4-)
[2023-07-30 08:06] LABS: CREATININE, URINE (mALB) 126.7 mg/dL (Not Estab.)
== END | disposition home or self-care (01) ==
LOC: LABMN 07:02
PROVIDERS: ATTEND Legal Medicine
DX: I12.9 Hypertensive chronic kidney disease with stage 1 through stage 4 chronic kidney disease, or unspecified chronic kidney disease (principal); E11.65 Type 2 diabetes mellitus with hyperglycemia; N18.2 Chronic kidney disease, stage 2 (mild); Z85.72 Personal history of non-Hodgkin lymphomas
CPT/HCPCS: 80053; 80061; 82043; 82306; 82570; 82607; 82746; 83036; 84443; 85025